=== PATIENT | male | born 1995 | race African-American/Black ===

== ENCOUNTER 2017-09-30 01:30 | Emergency (ER) | payer BC, OTHER ==
[2017-09-30] MEDS: IBUPROFEN 600 MG TAB PO (04:40)
== END 2017-09-30 04:42 | disposition home or self-care (01) ==
LOC: FTE 01:30
DX: K08.89 Other specified disorders of teeth and supporting structures (principal)
CPT/HCPCS: 99284

== ENCOUNTER 2018-01-11 03:20 | Emergency (ER) | payer BC ==
[2018-01-11] MEDS: KETOROLAC 60 MG INJ IM (04:03)
== END 2018-01-11 04:30 | disposition home or self-care (01) ==
LOC: FTE 03:20
DX: K08.89 Other specified disorders of teeth and supporting structures (principal); J45.909 Unspecified asthma, uncomplicated; F17.210 Nicotine dependence, cigarettes, uncomplicated; Z76.0 Encounter for issue of repeat prescription
CPT/HCPCS: 96372; 99284-25

== ENCOUNTER 2018-01-13 13:05 | Emergency (ER) | payer SELFPAY, BC | END 2018-01-13 15:53 | disposition left against medical advice (07) | LOC: FTE 15:53 | DX: Z53.21 Procedure and treatment not carried out due to patient leaving prior to being seen by health care provider (principal) ==

== ENCOUNTER 2018-01-20 13:46 | Emergency (ER) | payer BC ==
[2018-01-20] MEDS: LIDOCAINE/MYLANTA 40 ML BTL PO (18:25)
[2018-01-20] MEDS: ONDANSETRON (ODT) 4 MG TAB ODT (18:25)
[2018-01-21] MEDS ORDERED: KETOROLAC 30 MG INJ IV (22:20)
[2018-01-21] MEDS ORDERED: ONDANSETRON 4 MG INJ IV (22:20)
[2018-01-21] MEDS ORDERED: SOD CHLORIDE 0.9% 500 ML IV (22:20)
== END 2018-01-20 18:34 | disposition home or self-care (01) ==
LOC: FTE 13:46
DX: R10.13 Epigastric pain (principal); R10.11 Right upper quadrant pain; J45.909 Unspecified asthma, uncomplicated; F17.210 Nicotine dependence, cigarettes, uncomplicated; R11.10 Vomiting, unspecified; Z76.0 Encounter for issue of repeat prescription
CPT/HCPCS: 76705; 99284-25

== ENCOUNTER 2018-01-21 20:21 | Emergency (ER) | payer BC ==
[2018-01-21] MEDS: LACTATED RINGER'S 1,000 ML IV (23:41)
[2018-01-21] MEDS: ONDANSETRON 4 MG INJ IV (23:42)
[2018-01-21] MEDS: KETOROLAC 30 MG INJ IV (23:42)
== END 2018-01-22 00:11 | disposition home or self-care (01) ==
LOC: E/R 01-22 00:11
DX: R11.10 Vomiting, unspecified (principal); R19.7 Diarrhea, unspecified; J45.909 Unspecified asthma, uncomplicated; F17.210 Nicotine dependence, cigarettes, uncomplicated
CPT/HCPCS: 99284

== ENCOUNTER 2018-03-04 22:36 | Emergency (ER) | payer BC ==
[2018-03-05 02:08] LABS: URINE PH (Dip) POC 5.5 (5.0-8.5)
[2018-03-05 02:08] LABS: URINE BLOOD (Dip) POC Negative (NEGATIVE); URINE GLUCOSE (Dip) POC Negative (NEGATIVE); URINE KETONES (Dip) POC Trace (NEGATIVE); URINE LEUKOCYTE EST (Dip) POC Negative (NEGATIVE); URINE NITRITE (Dip) POC Negative (NEGATIVE); URINE TOTAL PROTEIN POC 1+ (NEGATIVE)
== END 2018-03-05 02:53 | disposition home or self-care (01) ==
LOC: FTE 22:36
DX: R30.0 Dysuria (principal); J45.909 Unspecified asthma, uncomplicated; F17.210 Nicotine dependence, cigarettes, uncomplicated
CPT/HCPCS: 81003; 99283

== ENCOUNTER 2018-05-09 02:16 | Emergency (ER) | payer BC ==
[2018-05-09] MEDS: CEFTRIAXONE 250 MG INJ IM (05:48)
[2018-05-09] MEDS: AZITHROMYCIN 250 MG TAB PO (05:48)
[2018-05-09] MEDS: DOXYCYCLINE 100 MG TAB PO (05:48)
[2018-05-09 06:55] LABS: ADD UMIC YES; UR ASCORBIC ACID NEGATIVE (NEGATIVE); UR BACTERIA MODERATE /HPF (NONE SEEN); UR BILIRUBIN (Dip) 1+ mg/dL (NEGATIVE); UR BLOOD (Dip) NEGATIVE (NEGATIVE); UR CLARITY SLIGHTLY CLOUDY (CLEAR); UR COLOR AMBER (YELLOW); UR GLUCOSE (Dip) NEGATIVE (NEGATIVE); UR KETONES (Dip) NEGATIVE (NEGATIVE); UR LEUKOCYTE ESTERASE (Dip) NEGATIVE Leu/ul (NEGATIVE); UR MUCUS MANY /HPF (NONE SEEN); UR NITRITE (Dip) NEGATIVE (NEGATIVE); UR RBC 1 /HPF (0-5); UR SPECIFIC GRAVITY (Dip) 1.032 (1.003-1.030); UR SQUAMOUS EPITHELIAL CELL FEW /HPF (FEW); UR TOTAL PROTEIN (Dip) 1+ mg/dl (NEGATIVE); UR UROBILINOGEN (Dip) 2+ mg/dL (NEGATIVE); UR WBC 3 /HPF (0-5)
== END 2018-05-09 06:23 | disposition home or self-care (01) ==
LOC: FTE 06:23
DX: A74.9 Chlamydial infection, unspecified (principal); J45.909 Unspecified asthma, uncomplicated; F17.210 Nicotine dependence, cigarettes, uncomplicated
CPT/HCPCS: 81001; 87591; 96372; 99284-25

== ENCOUNTER 2018-05-10 05:53 | Emergency (ER) | payer SELFPAY, BC ==
[2018-05-10] MEDS ORDERED: ALBUTEROL 0.5% (NEB) 2.5 MG/0.5 ML AMP INH (06:43)
[2018-05-10] MEDS ORDERED: METHYLPREDNISOLONE 125 MG INJ IV (06:43)
[2018-05-10] MEDS ORDERED: IPRATROPIUM (NEB) 0.5 MG/2.5 ML AMP INH (06:43)
[2018-05-10] MEDS: KETOROLAC 30 MG INJ IM (07:21)
== END 2018-05-10 07:44 | disposition home or self-care (01) ==
LOC: FTE 05:53
DX: M54.40 Lumbago with sciatica, unspecified side (principal); J45.909 Unspecified asthma, uncomplicated; F17.210 Nicotine dependence, cigarettes, uncomplicated
CPT/HCPCS: 96372; 99284-25

== ENCOUNTER 2019-02-10 13:34 | Emergency (ER) | payer BC ==
[2019-02-10] MEDS: ONDANSETRON (ODT) 4 MG TAB ODT (15:25)
[2019-02-10] MEDS: HYDROmorphONE 2 MG/ML SYG IM (15:25)
== END 2019-02-10 16:08 | disposition home or self-care (01) ==
LOC: FTE 16:08 → E/R 13:34
DX: S82.301A Unspecified fracture of lower end of right tibia, initial encounter for closed fracture (principal); J45.909 Unspecified asthma, uncomplicated; F17.210 Nicotine dependence, cigarettes, uncomplicated; X58.XXXA Exposure to other specified factors, initial encounter; Y92.9 Unspecified place or not applicable
CPT/HCPCS: 73590; 96372; 99284-25